=== PATIENT | male | born 1970 | race Caucasian/White ===

== ENCOUNTER 2019-11-05 14:05 | Emergency (ER) | payer OTHER ==
[~2019-11-05] VITALS: Ht 172.7 cm; Wt 85.3 kg
[2019-11-05] MEDS ORDERED: TRAMADOL 50 MG50 MG PO (14:46)
[2019-11-05] MEDS ORDERED: IBUPROFEN 800800 MG PO (14:46)
[2019-11-05 15:03] VITALS: BP 138/89
== END 2019-11-05 15:04 | disposition home or self-care (01) ==
LOC: M.ERS 14:05
DX: S63.641A Sprain of metacarpophalangeal joint of right thumb, initial encounter (principal); W18.39XA Other fall on same level, initial encounter; Y92.89 Other specified places as the place of occurrence of the external cause; Y93.89 Activity, other specified; Y99.0 Civilian activity done for income or pay